=== PATIENT | female | born 2000 | race Caucasian/White ===

== ENCOUNTER 2022-02-04 14:30 | Inpatient (IN) | payer MEDICAID, SELFPAY ==
[2022-02-04] VITALS (11 sets, daily range): BP systolic 116–137; BP diastolic 57–93; PULSE 65–84; TEMP 36.6–37.3; O2SAT 81–98; BMI 27.0
--- NOTE | 2022-02-04 15:07 | HP.PCM.OB_ITS ---
HPI - General General Date of Admission: 02/04/22 HPI Narrative ADEN ASHER, is a 21 F at 40.3 weeks gestation who presents in spontaneous labor. Patient reports started feeling contractions earlier this morning that continue to increase in strength and frequency. Denies any loss of fluid or vaginal bleeding. Positive movement. care completed in [facility]. is uncomplicated. Maternal Data Information Final ARVIND: 02/01/22 Final ARVIND Source: LMP PFSH PFSH Home Medications prenat.vits,hi,toy-mmse-akcho 1 tab PO DAILY 02/04/22 [History Last Taken Unknown] Allergy/AdvReac Type Severity Reaction Status Date / Time No Known Allergies Allergy Verified 02/04/22 14:51 Social History Smoking Status: Never smoker History Elective abortions Hx Para 0 Spontaneous abortions Hx # Term Pregnancies Ectopic pregnancies Hx # Pregnancies Multiple births # of living children ROS Eyes Eyes: Denies blurry vision, change in vision or spots in vision ENT HEENT: Denies dizziness or headache(s) Cardiovascular Cardiovascular: Denies abdominal pain, chest pain or dyspnea Respiratory/Chest Respiratory/Chest: Denies cough, dyspnea, shortness of breath at rest or shortness of breath with exertion Gastrointestinal Gastrointestinal: Denies abdominal pain, diarrhea or vomiting Genitourinary Genitourinary: Denies change in urinary stream, difficulty urinating or dysuria Musculoskeletal Musculoskeletal: Reports none Integumentary Integumentary: Denies rash Neurologic Neurologic: Denies dizziness, headache(s), memory loss or weakness Psychiatric Psychiatric: Reports none Vital Signs Vital Signs Vital Signs: 02/04/22 14:24 02/04/22 14:24 Pulse Rate 73 Blood Pressure 129/75 H BP Systolic 129 BP Diastolic 75 Weight Weight: 182 lb 15.739 oz Body Mass Index (BMI) 27.0 Physical Exam Const alert, oriented x3 and no apparent distress General Appearance: cooperative Orientation / Consciousness: awake Exam Limitations: no limitations HEENT normocephalic Head and Scalp: normal to inspection Eyes General Eye: normal appearance of both eyes Neck full ROM and no lymphadenopathy Lymph Lymphatic: no lymphadenopathy noted Chest inspection of chest normal Resp normal respiratory effort, normal air movement and clear to auscultation bilaterally Effort and Inspection: able to speak in complete sentences and symmetric chest movement Cardio regular rate and regular rhythm GI normal to inspection, nondistended, normoactive bowel sounds Manual OB Exam: presentation cephalic, dilated 4 and station 0 Back/Spine normal ROM Extremity full ROM and no calf tenderness Skin no rashes or lesions noted General Skin Exam: no breakdown Neuro oriented x3 and CN's II-XII intact bilaterally Psych mental status grossly normal and thought process normal Labs Labs Labs: Blood Type A POSITIVE Antibody Screen NEGATIVE Hct 38.7 % (37-47) Hgb 12.9 g/dL (12.0-15.0) A+ Rubella- immune HB neg HC neg HIV- NR RPR- NR GBS negative Assessment & Plan (1) 40 weeks gestation of : (2) Spontaneous onset of labor: PLAN: Plan CE- Admit to labor and delivery Routine labs Start IV and run per orders Epidural when indicated GBS negative IA Dr. Crespo notified of admission and is collaborating physician
[2022-02-04] MEDS: 0.9% Saline Lock 10 ML Syringe IV (15:10)
[2022-02-04 15:27] LABS: Absolute Lymphocyte Count 1.48 X10^3/uL (0.83-4.51); Absolute Neutrophil Count 12.2 X10^3/uL (2.0-7.7); Basophil# 0.03 X10^3/uL; Basophil% 0.2 % (0-1); Eosinophil# 0.04 X10^3/uL; Eosinophils% 0.3 % (0-5); Hematocrit 38.7 % (37-47); Hemoglobin 12.9 g/dL (12.0-15.0); Lymphocyte # 1.48 X10^3/ul (0.83-4.51); Lymphocyte % 10.1 % (19-41); Mean Corp Hgb Conc 33.3 g/dL (32-36); Mean Corpuscular Hgb 29.6 pg (27.0-32.0); Mean Corpuscular Volume 88.8 fL (81-99); Mean Platelet Vol. 10.9 fl (6.2-12.0); Monocyte# 0.81 X10^3/uL; Monocyte% 5.5 % (0-10); NRBC Flagged by Analyzer 0 % (0-5); Neutrophil # 12.24 X10^3/uL (2.7-7.7); Neutrophil % 83.1 % (47-70); Platelet Count 157 K/mm3 (150-450); RBC Distribution Width CV 13.7 % (11.6-14.6); RBC Distribution Width SD 44.5 fl (35.1-43.9); Red Blood Count 4.36 M/mm3 (4.2-5.4); White Blood Count 14.7 K/mm3 (4.4-11.0)
[2022-02-04] MEDS: Lactated Ringers 1,000 ML 50 ML IV (15:46)
[2022-02-04] MEDS: LACTATED RINGERS 500 ML 999 ML IV (15:48)
[2022-02-04] MEDS: Oxytocin 30 units/NS 500 ml 30 UNITS/500 ML IV.SOLN IV (22:05)
[2022-02-04] MEDS: Oxytocin 30 units/NS 500 ml 30 UNITS/500 ML IV.SOLN 334 UNITS IV (22:15)
--- NOTE | 2022-02-04 22:44 | EX.PCM.OBRPT ---
Assessment & Plan (1) (spontaneous vaginal delivery): (2) Laceration, obstetrical, first degree: (3) Lactating mother: Vaginal Delivery Maternal Presentation Maternal Presentation: - Maternal Presentation: at 40.3 weeks gestation that presented in spontaneous labor. Operative Information Date of Procedure: 02/04/22 Pre-Operative Diagnosis: Term gestation, Spontaneous onset of labor Post-Operative Diagnosis: Same, Live female Surgery / Procedure Performed: Spontaneous Vaginal Delivery Type of Anesthesia: Local with 2% Lidocaine Estimated Blood Loss: 300 Time of Delivery: 22:14 Findings Description of Procedure: Called to patient's room for her feeling pressure. Complete dilation noted. Provided bedside support to patient while pushing. Broaching Machine Repairer and RT in room for delivery for meconium fluid. head delivered with minimal maternal effort. Loose nuchal cord was easily reduced while anterior shoulder and remainder of body was delivered. Vigorous female placed on maternal abdomen and was attended to by nursing staff. Pitocin IV started for active phase of the third stage of labor. 3 vessel cord was clamped and cut by FOB and placed immediately skin to skin with patient. First degree bilateral vaginal lacerations repaired in usual fashion after local anesthesia placed. Hemostasis obtained. Vaginal sweep completed by me. All sponges and needles accounted for. Patient and bonding well at this time. EBL [address] cc. APGARS 8/9. Dr. Crespo notified of delivery. Presentation: Vertex and AMIE Amniotic Membrane Rupture Type: Artificial Time of Membrane Rupture: 1923 Amniotic Fluid Description: Moderate meconium Placental Delivery Description: Spontaneous Placenta Disposition: [facility] Cord Vessel Description: 3 Vessels Cord Entanglement: Around neck x 1, loose Nuchal Cord Compression: Without compression Infant A Gender: Female (1 minute): 8 (5 minute): 9 Delayed Cord Clamping: Yes Post Vaginal Delivery Medications Given After Delivery: IV Pitocin Episiotomy Description: None Laceration: 1st degree Complication Complications: None
[2022-02-05] VITALS (8 sets, daily range): BP systolic 104–121; BP diastolic 56–68; PULSE 66–85; RESP 14–16; TEMP 36.5–36.7; O2SAT 95–98
[2022-02-05] MEDS: Acetaminophen 500 MG Tablet 1000 MG PO ×2 (00:51→07:00)
--- NOTE | 2022-02-05 07:30 | PCM.PN.OB ---
Subjective Subjective Patient seen at bedside. Feeling good. Denies any pain. Ambulating and voiding without difficulty. with support. Desires discharge home tomorrow. Objective Data Objective Data Vital Signs: Vital Signs Temp Pulse Resp BP Pulse Ox O2 Del Method 97.8 F 72 16 104/56 L 95 Room Air 02/05/22 04:15 02/05/22 04:15 02/05/22 04:15 02/05/22 04:15 02/05/22 04:15 02/05/22 04:15 Oxygen Delivery Method Room Air Weight: 182 lb 15.739 oz Body Mass Index (BMI) 27.0 Intake & Output: Intake and Output for Last 24 Hours 02/03/22 02/04/22 02/05/22 23:59 23:59 23:59 Intake Total 1553.74 / 1553.74 327.43 / 327.43 Output Total 1100 / 1100 Balance 1553.74 / 1553.74 -772.57 / -772.57 Lab / Micro Data Result Diagrams: 02/04/22 15:10 Labs: Laboratory Results - last 24 hr 02/04/22 15:10: WBC 14.7 H, RBC 4.36, Hgb 12.9, Hct 38.7, MCV 88.8, MCH 29.6, MCHC 33.3, RDW Std Deviation 44.5 H, RDW Coeff of Leo 13.7, Plt Count 157, MPV 10.9, Immature Gran % (Auto) 0.800, Neut % (Auto) 83.1 H, Lymph % (Auto) 10.1 L, [place] % (Auto) 5.5, Eos % (Auto) 0.3, Baso % (Auto) 0.2, Absolute Neuts (auto) 12.2 H, Absolute Lymphs (auto) 1.48, Nucleated RBC % 0 02/04/22 15:10: Blood Type A POSITIVE, Antibody Screen NEGATIVE Micro: Microbiology 02/04/22 14:15 Nasal Secretion SARS-CoV-2 Antigen (Rapid) - Final ROS Eyes Eyes: Denies blurry vision, change in vision or spots in vision ENT HEENT: Denies dizziness or headache(s) Cardiovascular Cardiovascular: Denies abdominal pain, chest pain or dyspnea Respiratory/Chest Respiratory/Chest: Denies cough, dyspnea, shortness of breath at rest or shortness of breath with exertion Gastrointestinal Gastrointestinal: Denies abdominal pain, diarrhea or vomiting Genitourinary Genitourinary: Denies change in urinary stream, difficulty urinating or dysuria Musculoskeletal Musculoskeletal: Reports none Integumentary Integumentary: Denies rash Neurologic Neurologic: Denies dizziness, headache(s), memory loss or weakness Physical Exam Const alert and no apparent distress General Appearance: cooperative and comfortable Exam Limitations: no limitations HEENT normocephalic Eyes General Eye: normal appearance of both eyes Neck full ROM General: normal visual inspection Chest Chest: symmetrical chest wall rise Resp normal respiratory effort and normal air movement Effort and Inspection: symmetric chest movement Auscultation: clear to auscultation bilaterally Cardio regular rate and regular rhythm GI normal to inspection, nondistended, normoactive bowel sounds Back/Spine normal ROM Extremity full ROM and no calf tenderness General Extremity: normal exam except as noted Skin no rashes or lesions noted Neuro CN's II-XII intact bilaterally Psych mental status grossly normal Assessment & Plan (1) Lactating mother: (2) Laceration, obstetrical, first degree: (3) (spontaneous vaginal delivery): PLAN: Plan PPD 1 support Routine care Anticipate discharge home tomorrow
[2022-02-05] MEDS: Naproxen 500 MG Tablet PO (20:22)
[2022-02-06 02:00] VITALS: BP 98/59; PULSE 67; RESP 17; TEMP 36.2; O2SAT 96
--- NOTE | 2022-02-06 02:39 | NURSING ---
Mom reported to RN and nurse tech that she felt like her eyelieds were puffy. Mom states that she has sensitive skin and might have had an allergic reaction to the soap used for 's bath. Mom has been holding infant skin to skin/close to her face after 's bath. Mom reports her throat is a little bit sore, but other than that no other sx. No s/sx of respiratory distress at this time. Educated mom to report any new or worsening sx to RN. Mom voiced understanding and reports no hx of severe allergic reactions. Dr. Parkinson on unit for other deliveries - discussed pt situation w/ Dr. Parkinson and requested order for PO Benadryl. Ok to order PO Benadryl 25 mg PRN for itching/allergies. Order entered. MARY Ruth
[2022-02-06] MEDS: DiphenhydrAMINE 25 MG Capsule PO (02:48)
[2022-02-06 04:15] VITALS: BP 107/55; PULSE 64; RESP 16; TEMP 36.5; O2SAT 96
--- NOTE | 2022-02-06 08:56 | PCM.PN.OB ---
Subjective Subjective Pain well controlled, average lochia Objective Data Objective Data Vital Signs: Vital Signs Temp Pulse Resp BP Pulse Ox O2 Del Method 97.7 F L 64 16 107/55 L 96 Room Air 02/06/22 04:15 02/06/22 04:15 02/06/22 04:15 02/06/22 04:15 02/06/22 04:15 02/06/22 04:15 Oxygen Delivery Method Room Air Weight: 83 kg Body Mass Index (BMI) 27.0 Intake & Output: Intake and Output for Last 24 Hours 02/04/22 02/05/22 02/06/22 23:59 23:59 23:59 Intake Total 1553.74 / 1553.74 327.43 / 327.43 Output Total 1100 / 1100 Balance 1553.74 / 1553.74 -772.57 / -772.57 Lab / Micro Data Result Diagrams: 02/04/22 15:10 Micro: Microbiology 02/04/22 14:15 Nasal Secretion SARS-CoV-2 Antigen (Rapid) - Final Physical Exam Const alert and no apparent distress Narrative: Fundus firm, below umbilicus. Assessment & Plan (1) (spontaneous vaginal delivery): PLAN: PPD#2 s/p . Doing well. Working on . Desires d/c today
--- NOTE | 2022-02-06 08:57 | PCM.DC.SUM ---
Providers Date of Admission: 02/04/22 Primary Care Physician: Dr. Jag Glass MD Reason For Visit: LABOR AND DELIVERY Diagnosis Discharge Diagnosis (1) (spontaneous vaginal delivery): Status: Acute Code(s): O80 - Encounter for full-term uncomplicated delivery Plan: PPD#2 s/p . Doing well. Working on . Desires d/c today Medications at Discharge Home Medications prenat.vits,hi,idk-nttd-tjlek 1 tab PO DAILY 02/04/22 Hospital Course Operations - ( 02/04/22) Procedures None Summary of Care Provided Hospital Course: Patient was admitted at [facility] on 02/04/2022 in labor. She is a 21-year-old 1 para 0 at 40-3/7 weeks. She had a spontaneous vaginal delivery of first-degree laceration on 02/04/2022. By day #2 she was ready for discharge with routine instructions and follow-up. Weight / BMI Weight Weight: 83 kg Body Mass Index (BMI) 27.0 ABG / Lab / Microbiology Data Result Diagrams: 02/04/22 15:10 Microbiology: Microbiology 02/04/22 14:15 Nasal Secretion SARS-CoV-2 Antigen (Rapid) - Final D/C Instructions May resume sexual activity in: 6 weeks Please Follow Up With: Gi Escobar MD When: Follow up with our office in 1-2 and 6 weeks or as needed. [phone] Meaningful Use Info Meaningful Use Diagnoses (Choose all that apply): None applicable Discharge Plan Admission Admit Date/Time: 02/04/22 14:30 Attending Provider: Lilliana Sterling Primary Care Provider: Jag Glass Discharge Orders/Prescriptions Prescriptions: No Action Vitamin Tablet 1 tab PO DAILY Referrals / Follow Up: Jag Glass MD [Primary Care Provider] - Disposition Disposition (needs filled in before D/C Order can be placed): Home, Self Care
[2022-02-06 09:28] VITALS: BP 113/74; PULSE 87; RESP 16; TEMP 36.6; O2SAT 97
[2022-02-06] MEDS: Senna/Docusate Sodium 1 Tablet PO (09:45)
[2022-02-06 15:17] VITALS: BP 119/55; PULSE 87; RESP 17; TEMP 36.4
== END 2022-02-06 16:40 | disposition home or self-care (01) | DRG 807 ==
LOC: WPOUT 14:32 → WP 14:32
PROVIDERS: Admitting Provider Advanced Practice Midwife; PCP Dentist; Referring Provider Advanced Practice Midwife; Visit Provider Advanced Practice Midwife
DX: O77.0 Labor and delivery complicated by meconium in amniotic fluid (principal); Z37.0 Single live birth; O69.81X0 Labor and delivery complicated by cord around neck, without compression, not applicable or unspecified; Z3A.40 40 weeks gestation of pregnancy; O70.0 First degree perineal laceration during delivery
CPT/HCPCS: 59025; 59050; 85025; 86850; 86900; 86901; 87811; 99218; J7120; A4216; G0378

== ENCOUNTER 2024-11-02 06:09 | Inpatient (IN) | payer MEDICAID, SELFPAY ==
[2024-11-02] VITALS (19 sets, daily range): BP systolic 108–136; BP diastolic 55–72; PULSE 84–111; RESP 15–18; TEMP 36.2–37.2; O2SAT 96–100; BMI 28.6
[2024-11-02 06:57] LABS: Absolute Lymphocyte Count 2.28 X10^3/uL (0.83-4.51); Absolute Neutrophil Count 9.6 X10^3/uL (2.0-7.7); Basophil# 0.03 X10^3/uL; Basophil% 0.2 % (0-1); Eosinophil# 0.14 X10^3/uL; Eosinophils% 1.1 % (0-5); Hematocrit 34.1 % (37-47); Hemoglobin 11.5 g/dL (12.0-15.0); Lymphocyte # 2.28 X10^3/ul (0.83-4.51); Lymphocyte % 17.7 % (19-41); Mean Corp Hgb Conc 33.7 g/dL (32-36); Mean Corpuscular Hgb 28.6 pg (27.0-32.0); Mean Corpuscular Volume 84.8 fL (81-99); Mean Platelet Vol. 10.4 fl (6.2-12.0); Monocyte% 5.4 % (0-10); NRBC Flagged by Analyzer 0 % (0-5); Neutrophil # 9.64 X10^3/uL (2.7-7.7); Neutrophil % 74.7 % (47-70); Platelet Count 159 K/mm3 (150-450); RBC Distribution Width CV 13.7 % (11.6-14.6); RBC Distribution Width SD 42.3 fl (35.1-43.9); Red Blood Count 4.02 M/mm3 (4.2-5.4); White Blood Count 12.9 K/mm3 (4.4-11.0)
[2024-11-02 08:10] LABS: Syphilis Antibodies Nonreactive (Nonreactive)
[2024-11-02] MEDS: Lactated Ringers 1,000 ML 50 ML IV (12:30)
[2024-11-02] MEDS: Oxytocin 15 Units/NS 250ml 15 UNITS/250 ML IV.SOLN 2 UNITS IV (12:55)
--- NOTE | 2024-11-02 14:05 | EX.PCM.OBVAG ---
Assessment & Plan (1) (spontaneous vaginal delivery): (2) Care and examination of lactating mother: (3) Laceration, obstetrical, first degree: Maternal Data Information ARVIND Calculator Estimated Delivery Date Method Current WG Current Estimate 11/02/24 Manual 40w 0d Vaginal Delivery Maternal Presentation Maternal Presentation: Active Labor Type of Induction: Pitocin (Started for augmentation) Vaginal Delivery Information Procedure Performed: Spontaneous Vaginal Delivery Date of Procedure: 11/02/24 Pre-Procedure Diagnosis: Term gestation, Spontaneous onset of labor Post-Procedure Diagnosis: , Live male infant Type of anesthesia: None Estimated Blood Loss: 250 Time of Delivery: 13:38 Findings Description of procedure: Patient labored most of the morning in the birthing tub and initially desired water . She became exhausted. Discussed with patient argumentation with Pitocin to increase strength and frequency of contractions and patient agreed. Assisted patient to bed and IV started. Patient progressed to complete dilation. With good maternal effort, head delivered followed by anterior shoulder and remainder of infant body without any force, delay, or traction. Vigorous male was delivered atraumatically and placed on maternal abdomen. 3 vessel cord clamped and cut after delay and infant placed immediately skin to skin with patient. Placenta delivered spontaneously and intact. Patient desired passive management of the third stage of labor. Latched baby to breast without difficulty. Fundus firm. A 1st degree laceration was repaired in usual fashion using 3-0. Two small stitches placed. Hemostasis obtained. Vaginal sweep performed. Fundus is firm 2 below U and bleeding is hemostatic. Sponge and sharps counts correct. Patient and bonding well at this time. Dr. Escobar notified of delivery. Routine post orders placed. Presentation: Vertex Amniotic Membrane Rupture Type: Artificial Amniotic Fluid Description: Clear Placental Delivery Description: Spontaneous Placenta Disposition: [facility] Specimen collected: No Cord Vessel Description: 3 Vessels Cord Entanglement: None Nuchal Cord Compression: Without compression A Gender: Male (1 minute): 8 (5 minute): 9 Delayed Cord Clamping: Yes Digital Sales Manager rn labor delivery: No Post Vaginal Deli Medications given after delivery: Other ( ) Episiotomy Description: None Laceration: 1st degree Complication Complications: No
--- NOTE | 2024-11-02 14:08 | HP.PCM.OB_ITS ---
HPI - General General Date of Admission: 11/02/24 HPI Narrative ADEN GARCIA, is a 23 F at 40 weeks gestation who presents in spontaneous labor. Maternal Data Information ARVIND Calculator Estimated Delivery Date Method Current WG Current Estimate 11/02/24 Manual 40w 0d PFSH PFSH Medical History (Updated 11/02/24 @ 14:08 by Lilliana Sterling CNM) Superficial varicosities Headache Laceration, obstetrical, first degree (spontaneous vaginal delivery) Home Medications ?Medication ?Instructions ?Recorded ?Last Taken ?Type prenat.vits,hi,bcg-eujp-eisjr 1 tab PO DAILY pregnanc y 02/04/22 Unknown History aspirin 81 mg capsule 81 mg PO DAILY 08/2811/01/24 History Allergy/AdvReac Type Severity Reaction Status Date / Time No Known Allergies Allergy Verified 11/02/24 07:03 Surgical History (Updated 11/02/24 @ 06:59 by iNeves Triana) [place] teeth extracted Social History Smoking Status: Never smoker History Elective abortions Hx Para 2 Spontaneous abortions Hx # Term Pregnancies Ectopic pregnancies Hx # Pregnancies Multiple births # of living children ROS Eyes Eyes: Denies blurry vision, change in vision or spots in vision ENT HEENT: Denies dizziness or headache(s) Cardiovascular Cardiovascular: Denies abdominal pain, chest pain or dyspnea Respiratory/Chest Respiratory/Chest: Denies cough, dyspnea, shortness of breath at rest or shortne ss of breath with exertion Gastrointestinal Gastrointestinal: Denies abdominal pain, diarrhea or vomiting Genitourinary Genitourinary: Denies change in urinary stream, difficulty urinating or dysuria Musculoskeletal Musculoskeletal: Reports none Integumentary Integumentary: Denies rash Neurologic Neurologic: Denies dizziness, headache(s), memory loss or weakness Vital Signs Vital Signs Vital Signs: 11/02/24 05:27 11/02/24 05:27 11/02/24 05:29 Temperature Temperature Source Pulse Rate 108 H Respiratory Rate Blood Pressure 116/68 BP Systolic 116 BP Diastolic 68 Pulse Ox 97 11/02/24 05:29 11/02/24 07:17 11/02/24 07:17 Temperature Temperature Source Pulse Rate 104 H 92 Respiratory Rate Blood Pressure 127/65 H BP Systolic 127 BP Diastolic 65 Pulse Ox 11/02/24 07:17 11/02/24 07:17 11/02/24 07:20 Temperature 98.1 F Temperature Source Tympanic Pulse Rate 101 H Respiratory Rate Blood Pressure BP Systolic BP Diastolic Pulse Ox 11/02/24 07:20 11/02/24 10:17 11/02/24 10:17 Temperature Temperature Source Tympanic Pulse Rate Respiratory Rate Blood Pressure 108/71 BP Systolic 108 BP Diastolic 71 Pulse Ox 98 11/02/24 10:17 11/02/24 10:17 11/02/24 13:06 Temperature 97.6 F L Temperature Source Pulse Rate 91 Respiratory Rate Blood Pressure 117/55 L BP Systolic 117 BP Diastolic 55 Pulse Ox 11/02/24 13:06 11/02/24 13:48 11/02/24 13:48 Temperature Temperature Source Tympanic Pulse Rate 111 H Respiratory Rate Blood Pressure 136/57 H BP Systolic 136 BP Diastolic 57 Pulse Ox 11/02/24 13:48 11/02/24 13:48 11/02/24 13:48 Temperature Temperature Source Pulse Rate 101 H Respiratory Rate 18 Blood Pressure BP Systolic BP Diastolic Pulse Ox 100 11/02/24 13:48 11/02/24 13:53 11/02/24 13:53 Temperature 98.9 F Temperature Source Pulse Rate 94 Respiratory Rate Blood Pressure BP Systolic BP Diastolic Pulse Ox 99 11/02/24 14:03 11/02/24 14:03 11/02/24 14:03 Temperature Temperature Source Pulse Rate 90 Respiratory Rate 16 Blood Pressure 134/61 H BP Systolic 134 BP Diastolic 61 Pulse Ox Weight Weight: 194 lb Body Mass Index (BMI) 28.6 Physical Exam Const alert and no apparent distress General Appearance: cooperative and comfortable Exam Limitations: no limitations HEENT normocephalic Eyes General Eye: normal appearance of both eyes Neck full ROM General: normal visual inspection Chest Chest: symmetrical chest wall rise Resp normal respiratory effort and normal air movement Effort and Inspection: symmetric chest movement Auscultation: clear to auscultation bilaterally Cardio regular rate and regular rhythm GI normal to inspection, nondistended, normoactive bowel sounds Back/Spine normal ROM Extremity full ROM and no calf tenderness General Extremity: normal exam except as noted Skin no rashes or lesions noted Neuro oriented x3 Speech: speech normal Psych mental status grossly normal Thought Process: normal thought process Labs Labs Labs: Blood Type A POSITIVE Antibody Screen NEGATIVE Hct 34.1 % (37-47) L Hgb 11.5 g/dL (12.0-15.0) L Syphilis Total Ab Nonreactive (Nonreactive) Rhogam given: No Assessment & Plan (1) 40 weeks gestation of : (2) Spontaneous onset of labor: PLAN: Plan Admit to labor and delivery GBS negative IA Tub/ warm water when indicated Anticipate
[2024-11-02] MEDS: Ibuprofen 600 MG Tablet PO (15:35)
[2024-11-02] MEDS: Acetaminophen 500 MG Tablet 1000 MG PO (20:07)
[2024-11-03] VITALS (8 sets, daily range): BP systolic 102–114; BP diastolic 55–74; PULSE 75–99; RESP 14–16; TEMP 36.1–36.6; O2SAT 94–96
[2024-11-03] MEDS: Ibuprofen 600 MG Tablet PO ×3 (02:52→22:31)
--- NOTE | 2024-11-03 09:10 | PCM.PN.CNM ---
Subjective Subjective Patient seen at bedside. Denies any pain. Ambulating and voiding without difficulty. Lochia decreasing. Objective Data Objective Data Vital Signs: Vital Signs Temp Pulse Resp BP Pulse Ox O2 Del Method 97.4 F L 94 14 107/74 96 Room Air 11/03/24 08:47 11/03/24 08:51 11/03/24 08:47 11/03/24 08:51 11/03/24 08:50 11/03/24 08:47 Oxygen Delivery Method Room Air Weight: 194 lb Body Mass Index (BMI) 28.6 Intake & Output: Intake and Output for Last 24 Hours 11/01/24 11/02/24 11/03/24 23:59 23:59 23:59 Intake Total 64.0 / 64.0 Output Total 200 / 200 Balance -136.0 / -136.0 Lab / Micro Data Attestation: I reviewed the patient's lab results. 11/02/24 06:35 ROS Eyes Eyes: Denies blurry vision, change in vision or spots in vision ENT HEENT: Denies dizziness or headache(s) Cardiovascular Cardiovascular: Denies abdominal pain, chest pain or dyspnea Respiratory/Chest Respiratory/Chest: Denies cough, dyspnea, shortness of breath at rest or shortness of breath with exertion Gastrointestinal Gastrointestinal: Denies abdominal pain, diarrhea or vomiting Genitourinary Genitourinary: Denies change in urinary stream, difficulty urinating or dysuria Musculoskeletal Musculoskeletal: Reports none Integumentary Integumentary: Denies rash Neurologic Neurologic: Denies dizziness, headache(s), memory loss or weakness Physical Exam Const alert and no apparent distress General Appearance: cooperative and comfortable Exam Limitations: no limitations HEENT normocephalic Eyes General Eye: normal appearance of both eyes Neck full ROM General: normal visual inspection Chest Chest: symmetrical chest wall rise Resp normal respiratory effort and normal air movement Effort and Inspection: symmetric chest movement Auscultation: clear to auscultation bilaterally Cardio regular rate and regular rhythm GI normal to inspection, nondistended, normoactive bowel sounds Back/Spine normal ROM Extremity full ROM and no calf tenderness General Extremity: normal exam except as noted Skin no rashes or lesions noted Neuro oriented x3 Speech: speech normal Psych mental status grossly normal Thought Process: normal thought process Assessment & Plan (1) Laceration, obstetrical, first degree: (2) Care and examination of lactating mother: (3) (spontaneous vaginal delivery): PLAN: Plan PPD 1 support Anticipate discharge home tomorrow
[2024-11-03] MEDS: Acetaminophen 500 MG Tablet 1000 MG PO (10:07)
[2024-11-04] VITALS (8 sets, daily range): BP systolic 108–115; BP diastolic 54–62; PULSE 72–91; RESP 14–16; TEMP 36.4–36.8; O2SAT 95–97
--- NOTE | 2024-11-04 07:22 | DS.PCM_ITS ---
Providers Date of Admission: 11/02/24 Primary Care Physician: Odalys Primary Care Phys Reason For Visit: VAGINAL DELIVERY Diagnosis Discharge Diagnosis (1) Laceration, obstetrical, first degree: Status: Acute Code(s): O70.0 - First degree perineal laceration during delivery (2) Care and examination of lactating mother: Status: Acute Code(s): Z39.1 - Encounter for care and examination of lactating mother (3) (spontaneous vaginal delivery): Status: Acute Code(s): O80 - Encounter for full-term uncomplicated delivery Plan PPD 2 support Desires discharge home Medications at Discharge Home Medications prenat.vits,hi,jus-dlec-zkiri 1 tab PO DAILY 02/04/22 acetaminophen 500 mg tablet 1,000 mg (2 x 500 mg) PO Q6H PRN PRN Pain 1-10 Or Fever #0 tabs 11/04/24 ibuprofen 600 mg tablet 600 mg PO Q6H PRN PRN Pain Score 1-10 #0 tabs 11/04/24 Hospital Course Operations None Procedures None Summary of Care Provided Minutes Spent on Discharge: 15 Hospital Course: Patient had vaginal delivery. Hospital course was uneventful. Physical Exam Narrative Patient seen at bedside. Denies pain. Ambulating and voiding without difficulty. Lochia decreased. Desires discharge home today. Const alert and oriented x3 General Appearance: Negative for in distress HEENT normocephalic Eyes General Eye: normal appearance of both eyes Neck General: normal visual inspection Chest Chest: symmetrical chest wall rise Resp normal respiratory effort and normal air movement Effort and Inspection: symmetric chest movement; Negative for tachypneic Auscultation: clear to auscultation bilaterally Cardio regular rate and regular rhythm Peripheral Pulses: pulses 2+ throughout GI normal to inspection, nondistended, normoactive bowel sounds Narrative: Ice to perineum OB / External & Speculum: vaginal bleeding and other Lochia decreasing Uterus Palpation: uterus fundus firm (Below U) Extremity normal to inspection, full ROM and normal capillary refill Skin no rashes or lesions noted Neuro oriented x3, CN's II-XII intact bilaterally and gait normal Psych mental status grossly normal, thought process normal and activity/motor behavior normal Weight / BMI Weight Weight: 194 lb Body Mass Index (BMI) 28.6 ABG / Lab / Microbiology Data 11/02/24 06:35 D/C Instructions Discharge Diet: No restrictions Discharge Activity: Return to Normal Activity, No Restrictions, May Drive, May Shower and May Take a Tub Bath (Warm water only. No bath salts, soaps, bubbles) May resume sexual activity in: 6-8 weeks Weight Bearing Status: Weight bearing as tolerated Call your doctor if you observe: Fever of 101 or Higher, Inability to urinate, Using more than 1 pad per hour, Shortness of breath, Dizziness, Chest pain, Calf discomfort and Uncontrolled pain DC O2, CPAP, BIPAP Needs Home O2 Discharge instructions: No Please Follow Up With: [facility] When: 2 weeks in office or virtual Meaningful Use Info Meaningful Use Meaningful Use Diagnoses (Choose all that apply): None applicable Ischemic Stroke Statin Dosing Therapy Reference: STATIN DOSE THERAPY REFERENCE: * Patients > 75 years receive moderate or high dose statin therapy. * Patients 75 years or YOUNGER should receive HIGH intensity statin dose unless contraindicated. You will be required to document reason for non-treatment if statin daily dose does not meet guidelines. HIGH DOSE STATIN THERAPY DAILY Atorvastatin > than or = to 40 mg Rosuvastatin > than or = to 20 mg Amlodipine + Atorvastatin > than or = to 2.5/40 mg Ezetimibe + Simvastatin 10/80 mg Simvastatin 80mg Discharge Plan Admission Admit Date/Time: 11/02/24 06:09 Primary Reason for Your Visit: Labor and Delivery Attending Provider: Lilliana Sterling Primary Care Provider: Care Physician,No Primary Discharge Orders/Prescriptions Prescriptions: New acetaminophen 500 mg Tablet 1,000 mg PO Q6H PRN PRN (Reason: Pain 1-10 Or Fever) Qty: 0 0RF ibuprofen 600 mg Tablet 600 mg PO Q6H PRN PRN (Reason: Pain Score 1-10) Qty: 0 0RF Continued prenat.vits,hi,zho-qdjk-lziqr Tablet 1 tab PO DAILY Discontinued aspirin 81 mg capsule 81 mg PO DAILY Referrals / Follow Up: Lilliana Sterling CNM [Med Staff - Adv Practice Prof] - Care Physician,No Primary [Primary Care Provider] - Disposition Disposition (needs filled in before D/C Order can be placed): Home, Self Care
[2024-11-04] MEDS: Ibuprofen 600 MG Tablet PO (08:27)
[2024-11-04] MEDS: Senna/Docusate Sodium 1 Tablet PO (11:36)
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
== END 2024-11-04 17:55 | disposition home or self-care (01) | DRG 560 ==
LOC: WPOUT 06:14 → WP 06:14
PROVIDERS: Obstetrics & Gynecology; Admitting Provider Advanced Practice Midwife; Referring Provider Advanced Practice Midwife; Visit Provider Advanced Practice Midwife
DX: O26.893 Other specified pregnancy related conditions, third trimester (principal); Z37.0 Single live birth; O70.0 First degree perineal laceration during delivery; O75.81 Maternal exhaustion complicating labor and delivery; Z3A.40 40 weeks gestation of pregnancy
CPT/HCPCS: 59025; 59050; 85025; 86780; 86850; 86900; 86901; 99221; G0378

== ENCOUNTER → 2025-07-04 | Outpatient (CLI) | payer MEDICAID, SELFPAY ==
[2025-07-04 15:26] LABS: Anion Gap 10 (5-15); BUN 10 mg/dL (4-19); BUN/Creat Ratio 14.1 RATIO (10-20); Calcium,Total 9.6 mg/dL (7.6-11.0); Carbon Dioxide 25.2 mmol/L (21.0-32.0); Chloride 103 mmol/L (98-108); Cholesterol 211 mg/dL (<=200); Glucose 79 mg/dL (70-99); Low Density Lipoprotein Calc. 137 mg/dL; Potassium 4.0 mmol/L (3.3-5.1); Triglycerides 81 mg/dL; Very Low Density Lipoprotein 16 mg/dL (5-40); cholesterol:hdl ratio screen 3.54
== END | disposition home or self-care (01) ==
LOC: MTLAB 11:15
PROVIDERS: PCP Family Medicine; Referring Provider Family Medicine; Visit Provider Family Medicine
DX: Z00.00 Encounter for general adult medical examination without abnormal findings (principal)
CPT/HCPCS: 36415; 80048; 80061